=== PATIENT | female | born 2000 ===

== ENCOUNTER 2024-12-11 18:00 | Inpatient (IN) | payer MEDICAID ==
[~2024-12-11 18:00] MED LIST: Bupivacaine 0.25% HCL 30 ML VIAL ONE
[2024-12-11] MEDS ORDERED: Diphenoxylate HCl/Atropine Tablet PO PRN ×2 (21:33)
[2024-12-11] MEDS ORDERED: Ondansetron PF 4 MG/2 ML Vial IVP PRN (21:33)
[2024-12-11] MEDS ORDERED: Lidocaine 1% (PF) 30 ML VIAL SC PRN (21:33)
[2024-12-11] MEDS ORDERED: Carboprost 250 MCG/ML AMP IM PRN (21:33)
[2024-12-11] MEDS ORDERED: Ibuprofen 800 MG TAB PO PRN (21:33)
[2024-12-11] MEDS ORDERED: Methylergonovine 0.2 MG/ML VIAL IM PRN (21:33)
[2024-12-11] MEDS ORDERED: Tranexamic Acid 1,000 MG/10 ML VIAL IVP PRN (21:33)
[2024-12-11] MEDS ORDERED: hydrALAZINE 20 MG/ML VIAL SLOW IVP PRN (21:33)
[2024-12-11] MEDS ORDERED: Oxytocin 30 units/NS 500 ML 500 ML IV SCH (21:45)
[2024-12-11 21:49] VITALS: BMI 27.1
[2024-12-11 22:52] LABS: Hematocrit 35.0 % (34.9-44.5); Hemoglobin 12.0 g/dL (12.0-15.5); Mean Corpuscular Hemoglobin 29.0 pg (27.0-33.0); Mean Corpuscular Volume 84.5 fL (81.6-98.3); Platelet Count 337 10x3/uL (150-450); Red Blood Cell (RBC) Count 4.14 10x6/uL (3.90-5.03); White Blood Cell (WBC) Count 11.18 10x3/uL (3.5-10.5)
[2024-12-11 23:24] LABS: Hep B Surf Ag - L&D Non-Reactive S/CO (NonReactive)
[2024-12-11 23:25] LABS: Syphilis Antibody Index 0.10 S/CO (<1.00 Non-Reactive)
[2024-12-12] MEDS: fentaNYL/Ropivacaine Epidural 100 ML ONE (04:38)
[2024-12-12] MEDS ORDERED: Acetaminophen 325 MG TAB PO PRN (05:17)
[2024-12-12] MEDS ORDERED: diphenhydrAMINE 50 MG/ML VIAL IVP PRN (05:17)
[2024-12-12] MEDS ORDERED: fentaNYL 2 mcg/Ropivacaine 0.2% Epidural 100 ML CADD EPIDURAL SCH (05:30)
[2024-12-12] MEDS ORDERED: Communication Order-Pharmacy FS SCH (05:30)
[2024-12-12] MEDS: Ondansetron PF 4 MG/2 ML Vial IVP PRN (07:19)
[2024-12-12] MEDS: Oxytocin 30 units/NS 500 ML 500 ML IV SCH (11:51)
[2024-12-12] MEDS ORDERED: Preparation H Ointment 28 GM TUBE PR PRN (13:47)
[2024-12-12] MEDS ORDERED: Milk Of Magnesia 30 ML UDCUP PO PRN (13:47)
[2024-12-12] MEDS ORDERED: Bisacodyl 10 MG SUPP PR PRN (13:47)
[2024-12-12] MEDS ORDERED: Ondansetron PF 4 MG/2 ML Vial IVP PRN (13:47)
[2024-12-12] MEDS ORDERED: hydrALAZINE 20 MG/ML VIAL SLOW IVP PRN (13:47)
[2024-12-12] MEDS ORDERED: Lanolin Ointment 7 GM TUBE TOP PRN (13:47)
[2024-12-12] MEDS: Ibuprofen 800 MG TAB PO SCH (15:10)
[2024-12-13] MEDS: Ferrous Sulfate 325 MG TAB PO SCH (07:53)
[2024-12-13 14:22] VITALS: BP 114/64; TEMP 97.6
[2024-12-13] MEDS: Ibuprofen 800 MG TAB PO SCH (17:30)
== END 2024-12-13 16:35 | disposition home or self-care (01) | DRG 807 ==
LOC: CSHLD 21:16 → EEVIPCON 21:16 → CSHPP 12-12 18:48
PROVIDERS: ADMIT Obstetrics & Gynecology; ATTEND Obstetrics & Gynecology
PROC: 10E0XZZ Delivery of Products of Conception, External Approach (ICD-10-PCS; principal; 2024-12-11)
PROC: 4A1HXCZ Monitoring of Products of Conception, Cardiac Rate, External Approach (ICD-10-PCS; 2024-12-11)
PROC: 3E0DXGC Introduction of Other Therapeutic Substance into Mouth and Pharynx, External Approach (ICD-10-PCS; 2024-12-11)
DX: O76 Abnormality in fetal heart rate and rhythm complicating labor and delivery (principal); Z37.0 Single live birth; Z3A.39 39 weeks gestation of pregnancy; Z87.440 Personal history of urinary (tract) infections; Z91.040 Latex allergy status
CPT/HCPCS: 36415; 51702; 85027; 86780; 86850; 86900; 86901; 87340; J0665; J2590